=== PATIENT | male | born 1945 | race Caucasian/White ===

== ENCOUNTER → 2020-12-27 13:37 | Outpatient (CLI) | payer MEDICARE, OTHER, SELFPAY ==
[2020-12-27 16:50] LABS: COVID19 -Nasal RAPID Negative (Negative)
== END ==
PROVIDERS: PCP Internal Medicine; Referring Provider Nurse Practitioner Family; Visit Provider Nurse Practitioner Family
DX: Z01.812 Encounter for preprocedural laboratory examination (principal); Z20.822 Contact with and (suspected) exposure to COVID-19
CPT/HCPCS: 87635; C9803

== ENCOUNTER → 2020-12-28 09:18 | Day surgery (SDC) | payer MEDICARE, OTHER, SELFPAY ==
--- NOTE | 2020-12-28 | PATH_ITS ---
[facility] Accession Number: [id number] . 01 Material submitted: . PART A: cecum - CECUM EROSION PART B: colon - ASCENDING COLON POLYP . 02 Diagnosis: A. Cecum, Erosion, Biopsy: Colonic mucosa with distortion of the crypt architecture without active inflammation. Please see comment. Negative for granulomas, dysplasia, and malignancy. . B. Ascending Colon, Polyp, Biopsy: Tubular adenoma. [facility] 12/31/2020 1305 Local . 02 Comment: A) The cecum biopsies show colonic mucosa with mild distortion of the crypt architecture including irregular crypt shapes and mildly increased lymphocytes in the lamina propria. The morphologic appearance could be compatible with the endoscopic impression of healed/healing erosion. No neutrophils are identified. The differential diagnosis includes prior injury due to infection, medication, trauma/prolapse and idiopathic inflammatory bowel disease. . 02 Electronically signed: . Angelia Velazquez MD, Pathologist NPI- [id number] . 01 Gross description: . Part A: CECUM EROSION: Received in formalin are 3 fragment(s) of riley, soft tissue measuring 0.5 x 0.3 x 0.1 cm to 0.2 x 0.2 x 0.1 cm submitted entirely in 1 cassette(s) Part B: ASCENDING COLON POLYP: Received in formalin is 1 fragment(s) of riley, soft tissue measuring 0.2 x 0.2 x 0.1 cm submitted entirely in 1 cassette(s) /QBJ 12/29/2020 0720 Local . 02 Pathologist provided ICD-10: D12.2 . 02 CPT . 397267, [id number] Performed at: 01 [facility] [address] [place] [address] [address], [place], [place] [id number] MD Gus Leal MD Phone: [phone] Performed at: 02 [facility] [address] [place] [id number] MD Angelia Velazquez MD Phone: [phone]
[2020-12-28 10:13] VITALS: BP 125/69; PULSE 67; RESP 16; TEMP 36.6; O2SAT 98
[2020-12-28] MEDS: SODIUM CHLORIDE 0.9% 1,000 ML 84 ML IV (10:47)
--- NOTE | 2020-12-28 10:47 | P.HP_ITS ---
History of Present Illness History of Present Illness Date Patient Seen: 12/28/20 Time Patient Seen: 10:47 Chief complaint: SCREENING COLONOSCOPY Patient History Medical History HTN (hypertension) Inguinal hernia Surgical History H/O inguinal hernia repair S/P ACL repair Family & Social History Family History Other Colon cancer Social History: household members spouse Tobacco & Substance use: Smoking Status Never smoker alcohol intake current alcohol intake frequency 0-2 drinks per day Substance Use Type does not use Comment: Family history colon cancer. Meds Home Medications and Allergies Home Medications Medication Instructions Recorded Confirmed Type amlodipine 5 mg tablet 5 mg PO DAILY 12/28/20 12/28/20 History carvedilol phosphate 80 mg 80 mg PO DAILY 12/28/20 12/28/20 History capsule,[id number] multiphase clobetasol 0.05 % topical cream 0.05 applic TOPICAL PRN PRN 12/28/20 12/28/20 History rosuvastatin 20 mg tablet 20 mg PO DAILY 12/28/20 12/28/20 History tadalafil 20 mg tablet 20 mg PO PRN PRN 12/28/20 12/28/20 History telmisartan 40 mg tablet 40 mg PO DAILY 12/28/20 12/28/20 History Allergies Allergy/AdvReac Type Severity Reaction Status Date / Time No Known Drug Allergies Allergy Verified 12/28/20 10:12 Review of Systems Review of Systems ROS: Yes All systems reviewed with the patient and are negative except as o therwise documented Exam Vital Signs (past 8 hours): - 12/28/20 10:13 Temperature 97.8 F Pulse Rate 67 Respiratory Rate 16 Blood Pressure 125/69 Pulse Oximetry 98 Oxygen Delivery Method Room Air Const General: cooperative and comfortable Orientation: alert HENMT Head: normocephalic Ears: external ears normal Nose: external nose normal Face and sinus: normal facial exam Mouth: oral mucosae normal Eyes General: appearance normal, both eyes and all related structures Neck Neck: normal visual inspection Chest Chest: normal inspection of the chest Resp Effort & Inspection: normal respiratory effort Auscultation: clear to auscultation bilaterally Cardio Rate: regular rate Rhythm: regular rhythm Heart Sounds: no murmurs GI Inspection: normal to inspection Palpation: soft and No tender Auscultation: normal bowel sounds Skin General: no rashes or lesions noted and No jaundice Neuro General: patient alert and moves all extremities Cognition: normal cognition Speech: speech normal Extrem General: no pedal edema Psych Appearance: grossly normal Assessment & Plan Assessment & Plan narrative: Family history of colon cancer. Colon cancer screening is indicated. Colonoscopy is planned for today. Time Spent With Patient Critical Care time: I spent a total of [] minutes of critical care time on this patient's care today; this time is exclusive of procedural time.
--- NOTE | 2020-12-28 10:48 | PM.PREOP ---
Pre-operative Note COVID-19 COVID-19 status: Negative Result date/Date tested (Pos, Neg/Pending): 12/27/20 Interval Note History & Physical reviewed/Exam performed by Physician: Yes Changes to H&P: No ASA Class (for procedural sedation): II
--- NOTE | 2020-12-28 11:13 | P.OP.ENDO_ITS ---
Operative Date/Time/Diagnoses Date of procedure: 12/28/20 Time of procedure: 11:13 Pre-op diagnosis: Family history of colon cancer Post-op diagnosis: same Procedure & Clinicians Study performed: Colonoscopy with cold forceps polypectomy Same procedure as scheduled: Yes Indications: Family history of colon cancer Surgeon: Prasanna Galvan Procedure Notes SCOAP/Timeout: Done Procedure in detail: After the risks and benefits were explained, written and verbal informed consent was obtained. The patient was brought into the procedure room and placed into the left lateral decubitus position. Please see nurse billing clerk sedation notes. Digital rectal examination was accomplished. The scope was introduced into the patient and advanced under direct visualization to the cecum as identified by the appendiceal orifice and ileocecal valve. The scope was slowly withdrawn to carefully examine the mucosa for any defects or lesions. Comprehensive imaging was accomplished throughout the rectum including the dentate line. The colon was decompressed, the scope was then removed from the patient who tolerated the procedure well. Bowel prep adequate Adult colonoscope Scope withdrawal time: 10 minutes Sedation minutes: 17 Complications: none Impression: Patient had very scant diverticulosis in the sigmoid colon. In the cecum there is an erosion that was targeted for biopsy. In the ascending colon there is a diminutive 4 mm polyp removed with cold forceps. No other significant pathology was appreciated throughout apart from grade 1 internal nonbleeding nonthrombosed hemorrhoids. Endoscopic diagnosis 1. Grade 1 hemorrhoids 2. Cecal erosion 3. Diminutive cecal polyp 4. Scant sigmoid diverticulosis Post-procedure Recommendations: Colonscopy in 5 years Plan for aftercare: 1. Await histopathology 2. Repeat colonoscopy in 5 years. Disposition: PACU
[2020-12-28 11:17] VITALS: BP 108/54; PULSE 60; RESP 12; TEMP 36.4; O2SAT 98
[2020-12-28 11:21] VITALS: BP 108/54; PULSE 60; RESP 10; O2SAT 98
[2020-12-28 11:27] VITALS: BP 100/49; PULSE 58; RESP 12; O2SAT 98
[2020-12-28 11:33] VITALS: BP 100/49; PULSE 61; RESP 12; O2SAT 98
[2020-12-28 11:38] VITALS: BP 116/64; PULSE 58; RESP 9; TEMP 36.1; O2SAT 99
== END | disposition home or self-care (01) ==
PROVIDERS: PCP Internal Medicine; Referring Provider Internal Medicine Gastroenterology; Visit Provider Internal Medicine Gastroenterology
PROC: 0DJD8ZZ Inspection of Lower Intestinal Tract, Via Natural or Artificial Opening Endoscopic (ICD-10-PCS; CPT 45378; principal; 2020-12-28 10:30)
DX: Z12.11 Encounter for screening for malignant neoplasm of colon (principal); Z80.0 Family history of malignant neoplasm of digestive organs; K57.30 Diverticulosis of large intestine without perforation or abscess without bleeding; K64.0 First degree hemorrhoids; D12.2 Benign neoplasm of ascending colon
CPT/HCPCS: 45380; J2704